=== PATIENT | male | born 2000 | race Caucasian/White ===

== ENCOUNTER 2019-06-16 14:39 | Emergency (ER) | payer OTHER, SELFPAY ==
[2019-06-16 14:40] VITALS: BP 126/80; PULSE 60; RESP 14; TEMP 36.7; O2SAT 99; BMI 30.8
[2019-06-16 14:51] VITALS: BP 118/75; PULSE 80; RESP 14; O2SAT 98
--- NOTE | 2019-06-16 16:32 | ED.VIS.INJ ---
History of Present Illness Chief Complaint: Laceration Informant: Patient Onset: Today Mechanism/Context: Incised - Secondary to chainsaw cutting firewood Quality of Pain: - Current Severity: Gone Maximum Severity: Moderate Worsened by: Chainsaw Relieved by: Nothing Associated Symptoms: Negative for: Parasthesias, Weakness, Loss of function, Inability to ambulate Narrative: Patient is a 19-year-old male presents with laceration anterior distal left leg. He was cutting firewood. Chainsaw bucked. He sustained laceration. Tetanus is up-to-date. He denies paresthesia, anesthesia or motor weakness. Tetanus Immunization: <5 years Prior similar symptoms: No Recent Illness/Hospitalization: No - Past Medical History (1) No significant past medical history Status: Acute Past Medical History - Allergies and Home Meds Allergies/Adverse Reactions: Allergies No Known Allergies Allergy (Verified 06/16/19 14:43) Primary Care Physician: Ruben Lua DO [Primary Care Provider] - Prior records reviewed: No Past Medical History: None Surgical History: no surgical history Lives: With Family Smoking Status: Never smoker Alcohol: None Drugs: None Review of Systems Musculoskeletal: Reports: Extremity Pain. Denies: Myalgias, Arthralgias, Neck pain, Back pain, Swelling Skin: Reports: Wounds. Denies: Abrasions Neurological: Denies: Weakness, Parasthesia, Numbness Hematologic: Denies: Easy bruising, Easy bleeding Allergy: Denies: Uticaria, Swelling of the mouth, Swelling of the tongue Physical Exam Vital Signs/Narrative: Vital Signs Temp Pulse Resp BP Pulse Ox 06/16/19 14:51 80 14 118/75 98 06/16/19 14:40 98.0 F 60 14 126/80 H 99 Inital Vital Signs reviewed: Yes General: Well nourished, Well developed Head: Normocephalic, Atraumatic Eyes: Perrl, EOMI. Negative for: Pale conjunctiva, Scleral icterus, - Cardiovascular: Regular rate, Regular rhythm Respiratory: No distress, CTA bilaterally Extremeties: Gaping laceration anterior distal left leg. There is evidence of fabric in the wound. There is loss of tissue. The laceration penetrated the fascia. He is able to dorsi and plantar flex at the ankle. He is able to move all of his toes. Sensation is normal distal the laceration. There is devitalized tissue. There is no involvement of the bone and no other foreign bodies were noted other than fabric from his pants. DP and PT pulses were palpable. Neurological: Alert, Oriented x3, Cranial nerves II-XII grossly intact, Normal Strength, Normal Sensation. Negative for: Normal Gait Psychological: Normal affect - Glascow Coma Scale Eye Opening: Spontaneous Motor: Obeys Commands Verbal: Oriented Coma Scale Total: 15 Diagnostic/Tx/Re-eval - Medical Decision Making She has a laceration which will require revision, undermining and repair. Please read procedure note. Tetanus does not need updated. Laceration No standard instances Length: 2.28 in Depth: Fascia Shape: Linear Prep: Amrita Laceration Repair: - - Wound was anesthetized by local metrician using 1% lidocaine. Devitalized tissue was removed. The lateral half of the wound on the caudal and anterior margins was revised. The tissue was undermined. 3 subcu stitches were placed to approximate the wound. The skin was closed using 4-0 Ethilon. A total of 14 stitches was placed. 4 of those stitches were vertical mattress stitches. Irrigated (ml): 250 Number of Sutures/Jo: 14 ED Disposition - Plan for ED Patient: Disposition: Home or Assisted Living Diagnosis: Laceration of left leg Instructions: LACERATION, Extrem (Suture, Staple or Tape) Referrals: Ruben Lua DO [Primary Care Provider] - 10-14 Days suture removal Additional Instructions: Clean wound with peroxide and Q-tip 3 times a day then apply bacitracin ointment
[2019-06-16 17:35] VITALS: BP 112/74; PULSE 80; RESP 14; O2SAT 98
== END 2019-06-16 17:36 | disposition home or self-care (01) ==
PROVIDERS: Emergency Provider Emergency Medicine; Family Provider Family Medicine; PCP Family Medicine
DX: S81.812A Laceration without foreign body, left lower leg, initial encounter (principal); W29.3XXA Contact with powered garden and outdoor hand tools and machinery, initial encounter; Y93.89 Activity, other specified; Y92.008 Other place in unspecified non-institutional (private) residence as the place of occurrence of the external cause; Y99.8 Other external cause status
CPT/HCPCS: 12002; 99282